=== PATIENT | male | born 1970 | race Caucasian/White ===

== ENCOUNTER 2018-06-12 20:00 | Inpatient (IN) ==
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
[2018-06-13 04:21] LABS: Baso % (Auto) 0.2 % (0.0-2.0); Eos % (Auto) 0.2 % (0.0-4.0); Hematocrit 38.8 % (39.0-51.0); Hemoglobin 13.5 gm/dL (13.0-17.0); Lymph # (Auto) 2.2 th/mm3 (1.0-4.8); Lymph % (Auto) 20.8 % (9.0-44.0); Mean Corpuscular HGB Conc 34.9 % (32.0-36.0); Mean Corpuscular Hemoglobin 30.2 pg (27.0-34.0); Mean Corpuscular Volume 86.5 fL (80.0-100.0); Mean Platelet Volume 10.1 fL (7.0-11.0); Mono # (Auto) 0.8 th/mm3 (0.0-0.9); Mono % (Auto) 7.6 % (0.0-8.0); Neut # (Auto) 7.4 th/mm3 (1.8-7.7); Neut % (Auto) 71.2 % (16.0-70.0); Platelet Count 222 th/mm3 (150-450); Red Blood Count 4.48 mil/mm3 (4.50-5.90); Red Cell Distribution Width 13.5 % (11.6-17.2); White Blood Count 10.4 th/mm3 (4.0-11.0)
[2018-06-13 04:37] LABS: Alanine Aminotransferase 21 U/L (12-78); Anion Gap 8 meq/L (5-15); Aspartate Aminotransferase 17 U/L (15-37); Blood Urea Nitrogen 12 mg/dL (7-18); Calcium 8.5 mg/dL (8.5-10.1); Carbon Dioxide 24.3 meq/L (21.0-32.0); Chloride 109 meq/L (98-107); Glomerular Filtration Rate Greater Than 89 mL/min (>89); Glucose,Random 94 mg/dL (74-106); Potassium 3.7 meq/L (3.5-5.1); Sodium 141 meq/L (136-145)
[2018-06-13 04:40] LABS: Alkaline Phosphatase 78 U/L (45-117); Total Protein 7.4 g/dL (6.4-8.2)
[2018-06-13 04:46] LABS: INR 1.1 Ratio
[2018-06-13] MEDS ORDERED: Sod Chloride 0.9% Inj 1,000 ML IV.SIG ONE (07:12)
[2018-06-13] MEDS ORDERED: Morphine Inj 4 MG/ML Vial IV.PUSH ONE (07:12)
[2018-06-13] MEDS ORDERED: Dextrose 5%/NaCl 0.45% Inj 1,000 ML IV.CONT SCH (07:15)
[2018-06-13] MEDS ORDERED: Morphine Inj 4 MG/ML Vial IV.PUSH PRN ×2 (07:16→13:03)
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
[2018-06-13] MEDS ORDERED: Ketorolac Inj 30 MG/ML (IVP) Vial IV.PUSH ONE (12:00)
[2018-06-13] MEDS ORDERED: Glycopyrrolate Inj 1 MG/5 ML Syringe IV.PUSH ONE (12:00)
[2018-06-13] MEDS ORDERED: Neostigmine Inj 5 MG/5 ML Syringe IV.PUSH ONE (12:00)
[2018-06-13] MEDS ORDERED: Lidocaine PF 1% Inj 5 ML Syringe INFILTRATN ONE (12:00)
[2018-06-13] MEDS ORDERED: ceFAZolin 2 GM Premix Inj 2 GM/50 ML PIGGYBACK IV.SIG ONE (12:04)
[2018-06-13] MEDS ORDERED: Metoprolol Tartrate 25 MG Tablet PO SCH (12:30)
[2018-06-13] MEDS ORDERED: Chlorhexidine Gluconate 2% 1 Pack (2 Cloths) TOPICAL SCH (12:30)
[2018-06-13] MEDS ORDERED: fentaNYL Citrate Inj 100 MCG/2 ML Ampul ONE (12:58)
[2018-06-13] MEDS ORDERED: Sodium Chlor 0.9% Inj 500 ML IV.SIG SCH (13:00)
[2018-06-13] MEDS ORDERED: Post-op Orders (for Pharmacy) OTHER STA (13:03)
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
[2018-06-13] MEDS ORDERED: *morphine SULFATE 4 MG/ML PERIprocedure ONLY ONE (13:28)
[2018-06-13] MEDS ORDERED: *Meperidine Inj 25 MG/ML Vial PERIprocedural Use ONLY ONE (13:28)
[2018-06-13] MEDS: Bupivacaine/Epinephrine Inj 0.25% 50 ML Vial ONE ×2 (13:32→18:29)
[2018-06-13] MEDS ORDERED: HYDROmorphone PF Inj 2 MG/ML Vial ONE ×3 (13:42→14:33)
[2018-06-13] MEDS ORDERED: Ketorolac Inj 30 MG/ML (IVP) Vial ONE (14:00)
--- NOTE | 2018-06-13 14:04 | XR ---
EXAM DATE: 06/13/2018 2:00 PM EDT AGE/SEX: 48 years / Male INDICATIONS: ORIF right tibial plateau fracture. CLINICAL DATA: This is the patient's subsequent encounter. Patient reports that signs and symptoms h ave been present for 1 day and indicates a pain score of Nonresponsive. MEDICAL/SURGICAL HISTORY: Non-responsive. Non-responsive. COMPARISON: [facility], CT KNEE RIGHT W/O CONTRAST, 06/13/2018. . FINDINGS: AP and crosstable fluoroscopic views of the right knee demonstrate lateral plate and screw fixation o f lateral tibial plateau fracture. Hardware appears well-positioned. Near-anatomic alignment. No preston tional new fractures. CONCLUSION: 1. Status post right knee ORIF, as above. Electronically signed by: Jose Maria Burks MD 06/13/2018 2:03 PM EDT
[2018-06-13] MEDS: Ketorolac Inj 30 MG/ML (IVP) Vial IV.PUSH SCH ×2 (14:23→22:34)
[2018-06-13] MEDS: ceFAZolin 2 GM Premix Inj 2 GM/50 ML PIGGYBACK IV.SIG SCH (15:58)
[2018-06-13] MEDS ORDERED: Morphine Inj 4 MG/ML Vial ONE (16:32)
[2018-06-13] MEDS: Calcium/Vitamin D 250/125 MG Tablet PO SCH (18:30)
[2018-06-13] MEDS: Senna/Docusate Sodium 8.6/50 MG Tablet PO SCH (22:33)
[2018-06-14] MEDS ORDERED: Vancomycin Inj 1 GM/200 ML PIGGYBACK IV.SIG SCH
[2018-06-14] MEDS: Vancomycin Inj 1,000 MG in Sodium Chlor 0.9% Inj 250 ML IV.SIG SCH ×2 (00:34→15:24)
[2018-06-14] MEDS: ceFAZolin 2 GM Premix Inj 2 GM/50 ML PIGGYBACK IV.SIG SCH ×2 (00:35→09:41)
[2018-06-14] MEDS: Ketorolac Inj 30 MG/ML (IVP) Vial IV.PUSH SCH (05:18)
--- NOTE | 2018-06-14 08:06 | P.PNOP ---
Subjective Interval history: Resting comfortably with no new complaint Physical Exam Vital signs: Vital Signs 06/13/18 08:38 06/13/18 13:22 06/13/18 13:45 Temperature 97.8 F Pulse Rate 104 H 79 Respiratory Rate 16 16 16 Blood Pressure 135/79 129/63 Pulse Oximetry 100 100 06/13/18 14:00 06/13/18 14:15 06/13/18 14:30 Temperature Pulse Rate 74 80 85 Respiratory Rate 18 18 18 Blood Pressure 131/70 120/69 120/69 Pulse Oximetry 100 100 100 06/13/18 14:45 06/13/18 15:00 06/13/18 15:15 Temperature Pulse Rate 86 88 86 Respiratory Rate 17 19 17 Blood Pressure 135/76 130/73 135/76 Pulse Oximetry 97 97 97 06/13/18 15:22 06/13/18 15:30 06/13/18 16:40 Temperature 98.2 F Pulse Rate 91 H 102 H Respiratory Rate Blood Pressure 134/81 127/79 Pulse Oximetry 99 06/13/18 18:00 06/13/18 21:19 06/14/18 00:19 Temperature 97.6 F 97.7 F 97.7 F Pulse Rate 106 H 92 H 85 Respiratory Rate 16 17 18 Blood Pressure 138/82 145/85 H 139/78 Pulse Oximetry 96 97 98 06/14/18 04:00 Temperature 97.2 F L Pulse Rate 77 Respiratory Rate 17 Blood Pressure 112/58 L Pulse Oximetry 98 Intake & Output 06/13/18 06/14/18 06/14/18 18:59 06:59 18:59 Intake Total 3000 / 3000 3000 / 3000 Output Total 400 / 400 2900 / 2900 Balance 2600 / 2600 100 / 100 Weight 78 kg 78 kg Intake: IV 3000 / 3000 LR 1000 mL Inj 1,000 ML @ 30 1900 / 1900 mls/hr IV.SIG .Q24H SONY Rx#: [id number] NS Inj 1,000 ML @ Wide Open IV. 1000 / 1000 SIG BOLUS ONE Rx#:[id number] Ancef 2 GM Premix Inj 2 gm In 100 / 100 50 ml @ 0 mls/hr IV.SIG .STK- MED ONE Rx#:[id number] Oral 3000 / 3000 Output: Urine 350 / 350 2900 / 2900 Estimated Blood Loss 50 / 50 Other: Date of Last Bowel Movement 06/11/18 06/11/18 Weight On Admission 78 kg Narrative: Right lower extremity: Clean dry dressings intact. Knee immobilizer in place. Swelling is moderate. Distally intact sensation with active dorsiflexion plantar flexion of foot Results - Labs CBC & Chem 7: 06/13/18 04:10 06/13/18 04:10 - Imaging Impressions Knee X-Ray 06/13/18 00:00 CONCLUSION: 1. Status post right knee ORIF, as above. Assessment and Plan - Assessment and Plan Right tibia plateau fracture ORIF POD 1 Strict nonweightbearing right lower extremity with no active leg lifts or quad sets Case management for home health care with daily dressing changes and for passive range of motion of knee May discharge today if doing well with physical therapy Follow-up with Dr. Monroy or PA in 2 weeks
--- NOTE | 2018-06-14 08:18 | P.DCO ---
- Physical Therapy Physical Therapy: Gait training, Safety evaluation Canvas Knee Splint: Remove only with PT Right Lower Extremity Weight Bearing: Non-weight bearing Right Lower Extremity Range of Motion: Passive ROM - Nursing Dressing changes: Daily dressing change, Noé wrap, 4x4s, Xeroform - Certification Need for Home Health services: I have seen patient Nando Temple on 06/14/18. My clinical findings support the need for the requested home health care services because: Need for Home Health Services: Limited mobility due to disease progression Homebound Certification: I certify that my clinical findings support that this patient is homebound because: Homebound Certification: Post-op weakness
[2018-06-14] MEDS: Calcium/Vitamin D 250/125 MG Tablet PO SCH ×3 (09:41→17:39)
[2018-06-14] MEDS: Senna/Docusate Sodium 8.6/50 MG Tablet PO SCH (09:41)
[2018-06-14 12:10] VITALS: RESP 17
[2018-06-14] MEDS ORDERED: Enoxaparin Inj 30 MG/0.3 ML Syringe SQ SCH (12:30)
[2018-06-14] MEDS ORDERED: ceFAZolin 2 GM/NS 100 ML IV; Q8H IV.SIG SCH ×2 (16:00)
[2018-06-14 16:34] VITALS: BP 119/83; PULSE 95; TEMP 98.2; O2SAT 100
== END 2018-06-14 18:23 | disposition home health service (06) ==
LOC: NEPC 20:00 → NEDA 06-13 07:17 → N06 06-13 17:08
PROVIDERS: ADMIT Orthopaedic Surgery Orthopaedic Trauma; ATTEND Orthopaedic Surgery Orthopaedic Trauma